=== PATIENT | female | born 1980 | race Caucasian/White ===

== ENCOUNTER → 2018-08-11 08:14 | Outpatient (CLI) | payer OTHER, MEDICAID, SELFPAY ==
[2018-08-11 09:42] LABS: Add Manual Diff / Slide Review NO; Basophils Absolute Auto 0 /uL (0-100); Eosinophils Absolute Auto 200 /uL (0-450); Eosinophils Percent Auto 4.9 % (2-4); Hematocrit 42.6 % (36-46); Hemoglobin 14.5 g/dL (12.0-16.0); Lymphocytes Absolute Auto 500 /uL (1100-4500); Lymphocytes Percent Auto 12.2 % (25-40); Mean Corpuscular Hemoglobin 33.1 PG (26-34); Mean Corpuscular Volume 97.3 fL (80-100); Monocytes Absolute Auto 600 /uL (0-900); Monocytes Percent Auto 15.2 % (3-14); Neutrophils Absolute Auto 2700 /uL (1500-7000); Neutrophils Percent Auto 66.7 % (50-75); Platelet Count 218 X10^3/uL (150-400); Red Blood Cell Count 4.37 X10^6/uL (4.0-5.2); Red Cell Distribution Width 13.5 % (11.6-14.8); White Blood Cell Count 4.1 X10^3/uL (4.5-11.0)
[2018-08-11 10:07] LABS: Alanine Aminotransferase 101 IU/L (9-52); Albumin 4.3 g/dL (3.5-5.0); Albumin Globulin Ratio 1.4 (1.0-2.8); Alkaline Phosphatase 61 U/L (38-126); Aspartate Aminotransferase 60 IU/L (14-36); BUN Creatinine Ratio 16.7 (6-22); Blood Urea Nitrogen 10 mg/dL (7-17); Calcium 9.3 mg/dL (8.4-10.2); Carbon Dioxide 28 mmol/L (22-32); Chloride 102 mmol/L (98-107); Cholesterol 201 mg/dL (140-199); Estimated Glomerular Filt Rate > 60.0 mL/min (>60); Globulin 3.1 g/dL (1.7-4.1); Glucose 97 mg/dL (70-100); HDL Cholesterol 59 mg/dL (40-60); HEMOLYSIS < 15 (0-50); LDL Cholesterol Calculated 128 mg/dL (<100); Potassium 4.4 mmol/L (3.4-5.1); Sodium 137 mmol/L (137-145); Total Protein 7.4 g/dL (6.3-8.2); Triglycerides 69 mg/dL (35-150)
== END ==
PROVIDERS: PCP Internal Medicine; Visit Provider Internal Medicine
DX: Z00.00 Encounter for general adult medical examination without abnormal findings (principal); Z13.1 Encounter for screening for diabetes mellitus; Z13.6 Encounter for screening for cardiovascular disorders
CPT/HCPCS: 36415; 80053; 80061; 85025

== ENCOUNTER → 2018-08-18 10:18 | Outpatient (CLI) | payer OTHER, MEDICAID, SELFPAY ==
[2018-08-18 12:02] LABS: HEMOLYSIS < 15 (0-50); Iron 66 ug/dL (37-170)
[2018-08-18 12:13] LABS: Percent Iron Saturation 17 % (15-50); Total Iron Binding Capacity 384 ug/dL (265-497); Transferrin 299 mg/dL (206-381)
[2018-08-18 12:48] LABS: Hepatitis B Surface Antigen NEGATIVE s/c (NEGATIVE)
[2018-08-18 12:53] LABS: Hep C Virus Ab w/Reflex Quant NEGATIVE s/c (NEGATIVE)
[2018-08-20 14:25] LABS: Ceruloplasmin 29 mg/dL (18-53)
[2018-08-20 19:41] LABS: ANA Screen, IFA Negative (Negative)
[2018-08-20 22:56] LABS: Albumin 4.5 g/dL (3.8-4.8); Alpha 1 Globulin 0.2 g/dL (0.2-0.3); Alpha 2 Globulin 0.5 g/dL (0.5-0.9); Beta 1 Globulin 0.4 g/dL (0.4-0.6); Gamma Globulin 1.1 g/dL (0.8-1.7)
== END ==
PROVIDERS: PCP Internal Medicine; Visit Provider Internal Medicine
DX: K75.9 Inflammatory liver disease, unspecified (principal)
CPT/HCPCS: 36415; 82390; 83540; 83550; 84155; 84165; 86038; 86255; 86803; 87340

== ENCOUNTER 2018-10-08 19:10 | Emergency (ER) | payer OTHER, MEDICAID, SELFPAY ==
[2018-10-08 19:19] VITALS: BP 149/89; PULSE 84; RESP 20; TEMP 36.9; O2SAT 98; BMI 27.3
[2018-10-08 20:11] LABS: Bacteria Urine None Seen
[2018-10-08 20:26] LABS: RBC Urine 0-1/HPF (0-5/HPF); Squamous Epithelial Cell Urine 0-1 /HPF (0-5/HPF); WBC Urine 0-1/HPF (0-5/HPF)
[2018-10-08 20:27] LABS: Amorphous Sediment Urine 1+; Calcium Oxalate Crystals Urine Many
[2018-10-08 20:28] LABS: Culture Indicated Urine Cult Not Indicated
--- NOTE | 2018-10-08 20:49 | ED.ABDPAIN ---
HPI - Abdominal Pain General Chief Complaint: Abdominal Pain Stated Complaint: Left abdominal pain Time Seen by Provider: 10/08/18 20:31 Source: patient Mode of arrival: ambulatory Limitations: no limitations History of Present Illness HPI narrative: 37-year-old female here for evaluation of left flank/lower back pain. Patient states that it has been off and on for the past several hours. Denies any urinary symptoms. No blood in urine. No bowel changes. States there are times when the symptoms become very intense and then other times when it is bearable or even times were she is symptom-free. States that is not worse with palpation however when it does hurt movement makes it worse. Related Data Previous Rx's Medication Instructions Recorded bupropion HCl SR 150 mg tablet,12 150 mg PO BID #60 each 08/18/18 hr sustained-release terbinafine HCl 250 mg tablet 250 mg PO 3XW #60 tab 08/18/18 Allergies Allergy/AdvReac Type Severity Reaction Status Date / Time No Known Drug Allergies Allergy Verified 08/18/18 09:49 Review of Systems Constitutional Denies fever(s) Cardiovascular Denies chest pain and Denies dyspnea Respiratory Denies dyspnea Gastrointestinal Gastrointestinal: Denies abdominal pain Comments: Left flank pain Genitourinary Reports flank pain Musculoskeletal Denies myalgias and Denies arthralgias Integumentary/Breasts Denies rash Neurologic Denies behavioral changes Psychiatric Denies behavioral changes Hematologic/Lymphatic Denies easy bleeding and Denies easy bruising PFSH Medical History Patient denies medical problems (Acute) Surgical History S/P section (Inactive) Family History (Updated 08/17/18 @ 19:25 by Milagros Li) Grandmother Ovarian cancer Lung cancer Grandmother Diabetes mellitus Hypertension Cancer Grandfather History of heart disease Grandfather History of heart disease Social History marital status: unmarried,living together household members: significant other Smoking Status: Current every day smoker quit status: considering quitting Social History marital status: unmarried,living together household members: significant other Smoking Status: Current every day smoker quit status: considering quitting Exam Initial Vital Signs Initial Vital Signs: Vital Signs Temperature 98.4 F 10/08/18 19:19 Pulse Rate 84 10/08/18 19:19 Respiratory Rate 20 10/08/18 19:19 Blood Pressure 149/89 H 10/08/18 19:19 Pulse Oximetry 98 10/08/18 19:19 Const General: cooperative, well developed, well groomed and No acute distress Orientation: alert, awake and oriented x3 HENMT Head: normal to inspection and normocephalic Resp Effort & Inspection: normal respiratory effort Auscultation: clear to auscultation bilaterally Cardio Rate: regular rate Rhythm: regular rhythm GI Inspection: non-distended Palpation: soft, No firm and No tender Back/Spine/Pelvis Back: No CVA tenderness Skin Lesions: no lesions Rashes: no rashes Neuro General: alert, awake and oriented x3 Cognition: normal cognition Speech: speech normal Gait: normal gait Motor: muscle tone normal throughout Sensory Exam: no sensory deficits noted Extrem General: normal to inspection and capillary refill normal Psych Appearance: grossly normal and well kempt Course Orders Ordered: ED Orders 10/08/18 19:50 Urine Microscopic Stat 10/08/18 21:08 CT kidney ureter bladder (KUB) Stat 10/08/18 21:20 Basic Metabolic Panel Stat Discontinued Medications Hydrocodone Bitart/Acetaminophen (Vicodin Prepack) 1 bottle MISC SEEINSTR ONE Stop: 10/08/18 23:13 Last Admin: 10/08/18 23:20 Dose: 1 bottle Ketorolac Tromethamine (Toradol) 30 mg IV NOW ONE Stop: 10/08/18 22:32 Last Admin: 10/08/18 23:03 Dose: 30 mg Morphine Sulfate (Morphine) 4 mg IV NOW ONE Stop: 10/08/18 21:08 Last Admin: 10/08/18 21:17 Dose: 4 mg Ondansetron HCl (Zofran) 4 mg IV NOW ONE Stop: 10/08/18 21:08 Last Admin: 10/08/18 21:18 Dose: 4 mg Vital Signs - 8 hr 10/08/18 21:21 10/08/18 22:00 Pulse Rate 74 65 Blood Pressure [Left Arm] 138/89 136/78 Pulse Oximetry 98 96 MDM - Abdominal Pain Lab Data Attestation: I reviewed the patient's lab results. Result diagrams: 10/08/18 21:20 Lab Results 10/08/18 10/08/18 Range/Units 19:50 21:20 Sodium 142 (137-145) mmol/L Potassium 3.4 (3.4-5.1) mmol/L Chloride 106 (98-107) mmol/L Carbon Dioxide 26 (22-32) mmol/L BUN 9 (7-17) mg/dL Creatinine 0.60 (0.52-1.04) mg/dL Estimated GFR > 60.0 (>60) mL/min BUN/Creatinine Ratio 15.0 (6-22) Glucose 98 (70-100) mg/dL Calcium 8.9 (8.4-10.2) mg/dL Urine RBC 0-1/hpf (0-5/HPF) Urine WBC 0-1/hpf (0-5/HPF) Ur Squamous Epith Cells 0-1 /hpf (0-5/HPF) Calcium Oxalate Crystal Many H Amorphous Sediment 1+ Urine Bacteria None seen (None) Ur Culture Indicated? Cult not indicated Point of care testing: Point of Care Testing Test Results Negative Urine Dip Bedside Urine Glucose Negative Bedside Urine Bilirubin + 1 Bedside Urine Ketone - Negative Urine Specific [place] 1.20 Bedside Urine Occult Blood - Negative Bedside Urine pH 7.0 Bedside Urine Protein - Negative Bedside Urine Urobilinogen 1+ 2mg Bedside Urine Nitrite - Negative Bedside Urine Leukocytes - Negative Esterase Imaging Data CT scan - abdomen: Radiologist's impression: [place] [address] CT Scan Report Signed Patient: Valentina Burnett R#: [id number] : 1980Acct:[id number] Age/Sex: 37 / FDate of Service: 10/08/18 Loc: ED Accession Number: [id number] Procedure: CT kidney ureter bladder (KUB) Ordering Provider: Leonid Miller D.O. PROCEDURE: CT KIDNEY URETER BLADDER (KUB) INDICATIONS: Potential left-sided stone TECHNIQUE: Noncontrast 5 mm thick sections acquired from the diaphragms to the symphysis. 5 mm thick coronal and sagittal reformats were then performed. For radiation dose reduction, the following was used: automated exposure control, adjustment of mA and/or kV according to patient size. COMPARISON: None. FINDINGS: Image quality: Excellent. Lung bases: There is mild dependent atelectasis. Heart size is normal. Urinary system: Both kidneys are normal in size. No kidney stones. No hydronephrosis or perinephric fat stranding. Both ureters appear non-dilated throughout their expected courses. Bladder wall thickness is normal; no calcified bladder stones. Other solid organs: There is diffuse hypoattenuation of the liver consistent with fatty infiltration with relative sparing along the gallbladder fossa. Gallbladder appears within normal limits without calcified gallstones. Pancreas is normal in contours. Spleen is normal in size. No adrenal nodules. Peritoneum and bowel: Unenhanced bowel loops demonstrate normal wall thickness and caliber. No evidence of appendicitis. There is colonic diverticulosis without acute diverticulitis. No free fluid or air. Nodes and vessels: No retroperitoneal or mesenteric adenopathy by size criteria. Aorta and inferior vena cava are normal in caliber. Abdominal wall: No ventral hernias. Pelvis: No free pelvic fluid. No inguinal hernias or adenopathy. Bones: No suspicious bony lesions. No vertebral body compression fractures. IMPRESSION: 1. No evidence of nephrolithiasis or obstructive uropathy. 2. Colonic diverticulosis without acute diverticulitis. 3. Hepatic steatosis. Dictated by: Jonatan Moreno M.D. on 10/08/2018 at 22:12 Approved by: Jonatan Moreno M.D. on 10/08/2018 at 22:15 MDM Narrative Medical decision making narrative: Patient has having no symptoms the time of my evaluation. The CT scan does not show signs of nephrolithiasis. She does have crystals in her urine but no signs of infection. Her exam is not consistent with pyelonephritis. She has no skin changes consistent with zoster. Her symptoms are on her left flank. She does not have abdominal tenderness. She did the return of symptoms when she was here in the ER however was not reproducible with palpation. She has no blood in her urine. There is no other acute pathology on the CT scan. Will hold on further workup for now. Will send home with symptom treatment. Patient expressed understanding the lack of definitive diagnosis. Instructed to contact her primary provider. Expressed understanding and agreement with plan. Discharge Plan Departure Patient Disposition: Home Clinical Impression: Left flank pain Discharge Date/Time: 10/08/18 23:13 Interventions: ED Discharge Assessment Last Done: 10/08/18 23:13 Instructions: DI for Flank Pain Activity Restrictions/Additional Instructions: Take the medication as directed. Contact your primary provider for a follow-up. Return to the emergency department for any new or worsening symptoms like we discussed. Prescriptions: No Action bupropion HCl 150 mg tablet sustained-release 12 hr 150 mg PO BID Qty: 60 RF: 3 terbinafine HCl 250 mg tablet 250 mg PO 3XW Qty: 60 RF: 3 Referrals: Nick Martini MD [Primary Care Provider] -
--- NOTE | 2018-10-08 21:08 | DI.CT.S_ITS ---
PROCEDURE: CT KIDNEY URETER BLADDER (KUB) INDICATIONS: Potential left-sided stone TECHNIQUE: Noncontrast 5 mm thick sections acquired from the diaphragms to the symphysis. 5 mm thick coronal and sagittal reformats were then performed. For radiation dose reduction, the following was used: automated exposure control, adjustment of mA and/or kV according to patient size. COMPARISON: None. FINDINGS: Image quality: Excellent. Lung bases: There is mild dependent atelectasis. Heart size is normal. Urinary system: Both kidneys are normal in size. No kidney stones. No hydronephrosis or perinephric fat stranding. Both ureters appear non-dilated throughout their expected courses. Bladder wall thickness is normal; no calcified bladder stones. Other solid organs: There is diffuse hypoattenuation of the liver consistent with fatty infiltration with relative sparing along the gallbladder fossa. Gallbladder appears within normal limits without calcified gallstones. Pancreas is normal in contours. Spleen is normal in size. No adrenal nodules. Peritoneum and bowel: Unenhanced bowel loops demonstrate normal wall thickness and caliber. No evidence of appendicitis. There is colonic diverticulosis without acute diverticulitis. No free fluid or air. Nodes and vessels: No retroperitoneal or mesenteric adenopathy by size criteria. Aorta and inferior vena cava are normal in caliber. Abdominal wall: No ventral hernias. Pelvis: No free pelvic fluid. No inguinal hernias or adenopathy. Bones: No suspicious bony lesions. No vertebral body compression fractures. IMPRESSION: 1. No evidence of nephrolithiasis or obstructive uropathy. 2. Colonic diverticulosis without acute diverticulitis. 3. Hepatic steatosis. Dictated by: Jonatan Moreno M.D. on 10/08/2018 at 22:12 Approved by: Jonatan Moreno M.D. on 10/08/2018 at 22:15
[2018-10-08] MEDS: MORPHINE 4 MG/ML INJ IV (21:17)
[2018-10-08] MEDS: ONDANSETRON 4 MG/2 ML INJ IV (21:18)
[2018-10-08 21:21] VITALS: BP 138/89; PULSE 74; O2SAT 98
[2018-10-08 21:51] LABS: Blood Urea Nitrogen 9 mg/dL (7-17); Calcium 8.9 mg/dL (8.4-10.2); Carbon Dioxide 26 mmol/L (22-32); Chloride 106 mmol/L (98-107); Estimated Glomerular Filt Rate > 60.0 mL/min (>60); Glucose 98 mg/dL (70-100); HEMOLYSIS 20 (0-50); Potassium 3.4 mmol/L (3.4-5.1); Sodium 142 mmol/L (137-145)
[2018-10-08 22:00] VITALS: BP 136/78; PULSE 65; O2SAT 96
[2018-10-08] MEDS: KETOROLAC 60 MG/2 ML VIAL 30 MG IV (23:03)
[2018-10-08] MEDS: HYDROCODONE/ACET 5/325 PREPACK 1 BOTTLE MISC (23:20)
== END 2018-10-08 23:13 | disposition home or self-care (01) ==
PROVIDERS: Emergency Provider Emergency Medicine; PCP Internal Medicine
DX: R10.9 Unspecified abdominal pain (principal)
CPT/HCPCS: 74176; 80048; 81003; 81015; 81025; 96374; 96375; 99282; 99284; J1885; J2270; J2405

== ENCOUNTER 2020-03-25 19:41 | Emergency (ER) | payer OTHER, MEDICAID, SELFPAY ==
[2020-03-25 19:52] VITALS: BP 164/104; PULSE 111; RESP 17; TEMP 36.6; O2SAT 98; BMI 27.3
--- NOTE | 2020-03-25 19:52 | DI.RAD.S_ITS ---
PROCEDURE: XR ANKLE LT MIN 3V INDICATIONS: twisted ankle yesterday swollen and painful TECHNIQUE: 3 views of the ankle were acquired. COMPARISON: None. FINDINGS: Bones: No fractures or dislocations. Ankle mortise is normally aligned. No suspicious bony lesions. Soft tissues: Soft tissue swelling overlying the lateral malleolus. No tibiotalar joint effusion. Achilles tendon appears normal. IMPRESSION: Moderate lateral malleolar soft tissue swelling without underlying fracture or dislocation. If there is persistent clinical concern for occult fracture given adequate mechanism of injury, consider repeat imaging in 10-14 days. Dictated by: Romaine Gallardo M.D. on 03/25/2020 at 20:08 Approved by: Romaine Gallardo M.D. on 03/25/2020 at 20:09
--- NOTE | 2020-03-25 20:17 | DI.RAD.S_ITS ---
PROCEDURE: XR FOOT LT MIN 3V INDICATIONS: pain in foot TECHNIQUE: 3 views of the foot were acquired. COMPARISON: [facility], CR, XR ANKLE LT MIN 3V, 03/25/2020, 19:55. FINDINGS: Bones: Age-indeterminate, but probably chronic curvilinear ossification adjacent to the lateral margin of the cuboid bone. No significant overlying soft tissue swelling. There is soft tissue swelling overlying the lateral malleolus. Otherwise, no acute fractures visualized. Alignment is anatomic. No suspicious bony lesions. Soft tissues: No tibiotalar joint effusion. Achilles tendon appears normal. IMPRESSION: Age-indeterminate, curvilinear ossification adjacent to the lateral margin of the cuboid without overlying soft tissue edema. This may represent an avulsion injury from remote trauma. However, if there is point tenderness in this region, this may represent a more acute finding. Dictated by: Romaine Gallardo M.D. on 03/25/2020 at 20:33 Approved by: Romaine Gallardo M.D. on 03/25/2020 at 20:36
--- NOTE | 2020-03-25 20:42 | ED_ITS ---
HPI - Extremity Injury (Lower) General Chief Complaint: Extremity Injury, Lower Stated Complaint: Lt ankle/foot injury Time Seen by Provider: 03/25/20 20:18 Source: patient Mode of arrival: Ambulatory Limitations: no limitations History of Present Illness HPI Narrative: Patient is a 39-year-old female who presents with left foot and ankle pain. She states that she was sitting on her left foot with her legs crossed yesterday while riding [employer] cards. She got up and felt like her foot was asleep she has and tripped over some shoes. She heard about for pops. She is ambulatory on it but it does hurt in his quite painful. She has a black and blue bruising and significant swelling on the foot and ankle area. Related Data Previous Rx's Medication Instructions Recorded bupropion HCl 150 mg tablet,12 hr See Rx Instructions .ROUTE 04/20/19 sustained-release .COMPLEX #180 tab buspirone 7.5 mg tablet 7.5 mg PO BID #60 tab 02/03/20 naltrexone microspheres 380 mg 380 mg IM QMONTH #1 each 03/08/20 intramuscular suspension,extended release Allergies Allergy/AdvReac Type Severity Reaction Status Date / Time No Known Drug Allergies Allergy Verified 10/02/19 09:11 Review of Systems Review of Systems Narrative: GENERAL: Denies chills,fever HEENT: Denies throat pain RESPIRATORY: Denies dyspnea, cough, wheezing CARDIOVASCULAR: Denies chest pain, palpitations GASTROINTESTINAL: Denies nausea, vomiting MUSCULOSKELETAL: See HPI SKIN: No rash, no laceration, no pruritus NEUROLOGIC: Denies weakness, dizziness, headache, numbness 8 point review of systems is negative except for those stated above and HPI Patient History Medical History Abnormal LFTs Alcoholism in remission Generalized anxiety disorder Surgical History S/P section Family History Grandmother Ovarian cancer Lung cancer Grandmother Diabetes mellitus Hypertension Cancer Grandfather History of heart disease Grandfather History of heart disease Social History marital status: unmarried,living together household members: significant other Smoking Status: Current every day smoker quit status: considering quitting Smoking Status: Current every day smoker Substance Use Type: marijuana Exam Initial Vital Signs Initial Vital Signs: Vital Signs Temperature 97.9 F 03/25/20 19:52 Pulse Rate 111 H 03/25/20 19:52 Respiratory Rate 17 03/25/20 19:52 Blood Pressure 164/104 H 03/25/20 19:52 Pulse Oximetry 98 03/25/20 19:52 GENERAL: Well-appearing, well-nourished and in no acute distress. CARDIOVASCULAR: peripheral pulses in tact, cap refill <2 sec RESPIRATORY: No respiratory distress, speaks in full sentences without difficulty EXTREMITIES: Normal range of motion, no clubbing or edema. Neurovascularly intact Left foot significant swelling more laterally contusion noted at the heel area. Distal pedal pulse is intact Achilles tendon intact. He is quite tender to touch. NEUROLOGICAL: Cranial nerves II through XII grossly intact. Normal gait and speech. SKIN: Warm, dry, no petechiae, no rashes or lesions. Course Orders Ordered: ED Orders 03/25/20 19:52 XR ankle LT min 3V Stat 03/25/20 20:17 XR foot LT min 3V Stat Vital Signs Vital signs: Vital Signs - 8 hr 03/25/20 19:52 03/25/20 21:08 Temperature 97.9 F Pulse Rate 111 H 98 H Respiratory Rate 17 16 Blood Pressure 164/104 H 134/90 Pulse Oximetry 98 99 MDM - Extremity Injury (Lower) Imaging Data Extremity x-ray #1: Radiologist's Impression: PROCEDURE: XR ANKLE LT MIN 3V INDICATIONS: twisted ankle yesterday swollen and painful TECHNIQUE: 3 views of the ankle were acquired. COMPARISON: None. FINDINGS: Bones: No fractures or dislocations. Ankle mortise is normally aligned. No suspicious bony lesions. Soft tissues: Soft tissue swelling overlying the lateral malleolus. No tibiotalar joint effusion. Achilles tendon appears normal. IMPRESSION: Moderate lateral malleolar soft tissue swelling without underlying fracture or dislocation. If there is persistent clinical concern for occult fracture given adequate mechanism of injury, consider repeat imaging in 10-14 days. Dictated by: Romaine Gallardo M.D. on 03/25/2020 at 20:08 Approved by: Romaine Gallardo M.D. on 03/25/2020 at 20:09 Extremity x-ray #2: Radiologist's Impression: PROCEDURE: XR FOOT LT MIN 3V INDICATIONS: pain in foot TECHNIQUE: 3 views of the foot were acquired. COMPARISON: [facility], CR, XR ANKLE LT MIN 3V, 03/25/2020, 19:55. FINDINGS: Bones: Age-indeterminate, but probably chronic curvilinear ossification adjacent to the lateral margin of the cuboid bone. No significant overlying soft tissue swellin g. There is soft tissue swelling overlying the lateral malleolus. Otherwise, no acute fractures visualized. Alignment is anatomic. No suspicious bony lesions. Soft tissues: No tibiotalar joint effusion. Achilles tendon appears normal. IMPRESSION: Age-indeterminate, curvilinear ossification adjacent to the lateral margin of the cuboid without overlying soft tissue edema. This may represent an avulsion injury from remote trauma. However, if there is point tenderness in this region, this may represent a more acute finding. Dictated by: Romaine Gallardo M.D. on 03/25/2020 at 20:33 Discharge Plan Departure Patient Disposition: Home Clinical Impression: Sprain of foot, left Qualifiers: Encounter type: initial encounter Qualified Code(s): S93.602A - Unspecified sprain of left foot, initial encounter Instructions: DI for Foot Sprain Activity Restrictions/Additional Instructions: *You have been diagnosed with left foot sprain *What to do: Use crutches as needed recommend elevating as often as possible ice 20-30 minutes at a time. Use an ankle brace as well especially while active during the day. If still having pain and discomfort in 2-4 weeks he may require an outpatient MRI please see your primary care provider about this *Continue to take medications as directed Aleve 500 mg every 12 hours *Follow up with your primary care provider in 2-3 days *Return to ER if you should have increasing pain swelling or any new, worsening or concerning symptoms Prescriptions: No Action bupropion HCl 150 mg tablet sustained-release 12 hr See Rx Instructions .ROUTE .COMPLEX Qty: 180 RF: 3 buspirone 7.5 mg tablet 7.5 mg PO BID Qty: 60 RF: 3 Vivitrol 380 mg suspension,extended rel recon 380 mg IM QMONTH Qty: 1 RF: 4 Referrals: Nick Martini MD [Primary Care Provider] -
[2020-03-25 21:08] VITALS: BP 134/90; PULSE 98; RESP 16; O2SAT 99
== END 2020-03-25 21:08 | disposition home or self-care (01) ==
PROVIDERS: Emergency Provider Emergency Medicine; PCP Internal Medicine
DX: S93.602A Unspecified sprain of left foot, initial encounter (principal); W19.XXXA Unspecified fall, initial encounter
CPT/HCPCS: 73610; 73630; 99283

== ENCOUNTER → 2020-05-31 15:42 | Outpatient (CLI) | payer OTHER, MEDICAID, SELFPAY ==
[2020-05-31 16:33] LABS: COVID19 -Nasal RAPID Negative (Negative)
== END ==
PROVIDERS: PCP Internal Medicine; Referring Provider Internal Medicine; Visit Provider Internal Medicine
DX: Z20.822 Contact with and (suspected) exposure to COVID-19 (principal)
CPT/HCPCS: 87635

== ENCOUNTER 2021-11-05 09:05 | Emergency (ER) | payer OTHER, MEDICAID, SELFPAY ==
[2021-11-05 09:05] VITALS: BP 122/77; PULSE 75; RESP 18; TEMP 36.6; O2SAT 100; BMI 25.7
--- NOTE | 2021-11-05 09:44 | ED.ALLEREA ---
HPI - Allergic Reaction General Chief complaint: Allergic Reaction Stated complaint: allergic reaction Time Seen by Provider: 11/05/21 09:15 Source: patient Mode of arrival: Ambulatory History of Present Illness HPI narrative: This patient comes to the emergency department with an allergic reaction. She says she has had multiple allergic reactions over the past few months for no known reason. She suspects her COVID immunization may be related. She says once it was related to shellfish exposure. She says today she has had no shellfish exposure or any other exposure she can name. She says typically her allergic reactions involve swelling of the mouth tongue and lips but today those are not the symptoms today her symptoms are rash eruption that is very itchy and swelling of the hands and feet with nausea and vomiting and lightheadedness as if she might faint. She vomited multiple times on her way to work and on her way to the hospital. Related Data Previous Rx's Medication Instructions Recorded bupropion HCl 150 mg tablet,12 hr See Rx Instructions .Route 02/10/21 sustained-release .COMPLEX #180 tabs buspirone 7.5 mg tablet 7.5 mg PO BID #60 tabs 02/10/21 naltrexone microspheres 380 mg 380 mg IM QMONTH #1 ea 02/10/21 intramuscular suspension,extended release (Vivitrol) epinephrine 0.3 mg/0.3 mL 0.3 mg (0.3 mL) IM Q4H PRN 11/05/21 injection, auto-injector (EpiPen anaphylaxis #1 ea 2-Alexander) Allergies Allergy/AdvReac Type Severity Reaction Status Date / Time No Known Drug Allergies Allergy Verified 02/10/21 13:28 Review of Systems Review of Systems Narrative: Complete review of systems is negative other than as noted above. Specifically she denies shortness of breath or swelling in her tongue or mouth. Patient History Medical History Abnormal LFTs Alcoholism in remission Generalized anxiety disorder Surgical History S/P section Family History Grandmother Ovarian cancer Lung cancer Grandmother Diabetes mellitus Hypertension Cancer Grandfather History of heart disease Grandfather History of heart disease Social History marital status: unmarried,living together household members: significant other Smoking Status: Current some day smoker quit status: considering quitting Smoking Status: Current some day smoker Substance Use Type: marijuana Exam Narrative Exam Narrative: GENERAL: Alert, cooperative and in no distress. HEAD: Atraumatic. Normocephalic. EYES: Sclera are clear without icterus. Extraocular movements are full. ENT: No rhinorrhea. Oropharynx is moist. Mouth exam is benign. NECK: Supple. Full range of motion. CARDIOVASCULAR: Normal rate and rhythm without murmur gallop or rub. RESPIRATORY: Clear to auscultation. Breath sounds equal bilaterally. No wheezes, rales, or rhonchi. GASTROINTESTINAL: Abdomen soft, non-tender, nondistended. EXTREMITIES: No edema, full range of motion. No obvious trauma. BACK: Normal inspection, no CVA tenderness. NEURO: Nonfocal examination, normal speech, normal gait. SKIN: Urticarial rash on the flanks and extremities. The hands and feet are slightly edematous. PSYCH: Normally oriented. Normal range of affect. Appropriate behavior Initial Vital Signs Initial Vital Signs: Vital Signs Temperature 98 F 11/05/21 09:05 Pulse Rate 75 11/05/21 09:05 Respiratory Rate 18 11/05/21 09:05 Blood Pressure 122/77 11/05/21 09:05 Pulse Oximetry 100 11/05/21 09:05 Oxygen Delivery Method 11/05/21 09:05 Course Course Course Narrative: She is hemodynamically normal when I see her. She is not actively vomiting. She has a skin reaction but I do not perceive any abdominal pain on exam nor does she have any or pharyngeal symptoms. I think watchful waiting with modest interventions including H1 and H2 blockers as appropriate. Orders Ordered: Famotidine (Famotidine 20 Mg/2 Ml Vial) 20 mg IV NOW ELSA Last Admin: 11/05/21 10:25 Dose: 20 mg Documented By: SANDEEP Discontinued Medications Diphenhydramine HCl (Diphenhydramine 50 Mg/Ml Vial) 25 mg IV NOW ONE Stop: 11/05/21 09:44 Last Admin: 11/05/21 10:23 Dose: 25 mg Documented By: SANDEEP Vital Signs Vital signs: Vital Signs - 8 hr 11/05/21 09:05 Temperature 98 F Pulse Rate 75 Respiratory Rate 18 Blood Pressure 122/77 Pulse Oximetry 100 Oxygen Delivery Method Room Air MDM - Allergic Reaction MDM Narrative Medical decision making narrative: Patient feels dramatically improved. She just now received her Benadryl and famotidine so I do not think that our administration of this medicine had much to do with it. She did take 50 mg of oral Benadryl prior to arrival. No symptoms of severe allergy at this time. Discharge Plan Departure Patient Disposition: Home Clinical Impression: Allergic reaction Activity Restrictions/Additional Instructions: It is not clear what is causing this allergic reaction that you had today or what it has been bothering you recently so I recommend you follow-up with your doctor to discuss further investigation including possible allergy referral. For now recommend Benadryl as needed. Go ahead and use the EpiPen if you have severe symptoms and cannot get to medical care quickly. This medicine will make you feel terrible for short period of time so do not use it unless you have severe allergy symptoms. Prescriptions: New epinephrine [EpiPen 2-Alexander] 0.3 mg/0.3 mL auto-injector 0.3 mg IM Q4H PRN (Reason: anaphylaxis) Qty: 1 0RF No Action Vivitrol 380 mg suspension,extended rel recon 380 mg IM QMONTH Qty: 1 4RF buspirone 7.5 mg tablet 7.5 mg PO BID Qty: 60 3RF bupropion HCl 150 mg tablet sustained-release 12 hr See Rx Instructions .ROUTE .COMPLEX Qty: 180 3RF Dose Instruction: TAKE 1 TABLET BY MOUTH ONCE DAILY FOR THE FIRST WEEK, THEN INCREASE TO2 TABLETS DAILY THEREAFTER Rx Instructions: 2 TABLETS BY MOUTH DAILY Referrals: Nick Martini MD [Primary Care Provider] -
[2021-11-05] MEDS: diphenhydrAMINE 50 MG/ML VIAL 25 MG IV (10:23)
[2021-11-05] MEDS: FAMOTIDINE 20 MG/2 ML VIAL IV (10:25)
[2021-11-05 10:30] VITALS: BP 130/70; PULSE 75; RESP 18; O2SAT 98
== END 2021-11-05 10:48 | disposition home or self-care (01) ==
PROVIDERS: Emergency Provider Family Medicine Addiction Medicine; PCP Internal Medicine
DX: R21 Rash and other nonspecific skin eruption (principal); R11.2 Nausea with vomiting, unspecified; R42 Dizziness and giddiness; T78.40XA Allergy, unspecified, initial encounter
CPT/HCPCS: 96374; 96375; 99283; 99284; J1200

== ENCOUNTER 2023-03-10 00:46 | Emergency (ER) | payer OTHER, MEDICAID, SELFPAY ==
[2023-03-10 00:52] VITALS: BP 147/87; PULSE 81; RESP 18; TEMP 36.8; O2SAT 97; BMI 36.9
--- NOTE | 2023-03-10 00:56 | PC.NURSE ---
pain in lower jaw after teeth extraction
--- NOTE | 2023-03-10 00:57 | ED.DENTAL ---
HPI - Dental/Oral General Chief complaint: Dental/Oral Stated complaint: dry socket Time Seen by Provider: 03/10/23 00:52 Source: patient Mode of arrival: Ambulatory History of Present Illness HPI Narrative: 42yoF presents with possible dry socket. Patient had extraction of all of her implants 3 days ago. She states she was sent home on pain medications, but she does not like how they make her feel. She has been taking Tylenol and Motrin but there is a pain in her left mandible that is progressively getting worse and she is concerned that she may have dry socket. It is Saturday and she is unable to see her dentist until Saturday. Patient had dental implants for 22 years and they ?failed?, which was the reason for extensive extraction Related Data Previous Rx's Medication Instructions Recorded bupropion HCl 150 mg tablet,12 hr See Rx Instructions .Route 02/10/21 sustained-release .COMPLEX #180 tabs buspirone 7.5 mg tablet 7.5 mg PO BID #60 tabs 02/10/21 naltrexone microspheres 380 mg 380 mg IM QMONTH #1 ea 02/10/21 intramuscular suspension,extended release (Vivitrol) epinephrine 0.3 mg/0.3 mL 0.3 mg (0.3 mL) IM Q4H PRN 11/05/21 injection, auto-injector (EpiPen anaphylaxis #1 ea 2-Alexander) clindamycin HCl 300 mg capsule 300 mg PO QID #21 caps 03/10/23 Allergies Allergy/AdvReac Type Severity Reaction Status Date / Time No Known Drug Allergies Allergy Verified 02/10/21 13:28 Review of Systems Review of Systems Narrative: Negative except as noted above Patient History Medical History Abnormal LFTs Alcoholism in remission Generalized anxiety disorder Surgical History S/P section Family History Grandmother Ovarian cancer Lung cancer Grandmother Diabetes mellitus Hypertension Cancer Grandfather History of heart disease Grandfather History of heart disease Social History marital status: unmarried,living together household members: significant other Smoking Status: Current some day smoker quit status: considering quitting Smoking Status: Current some day smoker Substance Use Type: marijuana Exam Initial Vital Signs Initial Vital Signs: Vital Signs Temperature 98.2 F 03/10/23 00:52 Pulse Rate 81 03/10/23 00:52 Respiratory Rate 18 12 00:52 Blood Pressure 147/87 H 12 00:52 Pulse Oximetry 97 03/10/23 00:52 Oxygen Delivery Method Room Air 03/10/23 00:52 Const: Awake, alert, no acute distress, nontoxic appearing ENT: edentulous, dry socket at canine/cuspid level. All other sutures healing well Skin: Warm, Dry, intact, no rashes Neuro: AO x3, CN II-XII grossly intact, moves all extremities Course Course Course Narrative: Dry socket of the left mandible. The rest of the patient's jaw does appear to be healing well. A dental block using 1mL of 0.5% bupivacaine with epinephrine was injected into the left inferior alveolar nerve. Patient reported improvement in pain post-procedure. Will start on clindamycin, first dose given in ED. DC with clindamycin rx and instructions to f/u with dentist first thing saturday morning Orders Ordered: Discontinued Medications Bupivacaine HCl/Epinephrine Bitart (Bupivacaine 0.5% W/ Epi (Pf) 30 Ml Vial) 5 ml SUBCUT NOW ONE Stop: 03/10/23 00:57 Last Admin: 03/10/23 01:00 Dose: 5 ml Clindamycin HCl (Clindamycin 150 Mg Capsule) 300 mg PO NOW ONE Stop: 03/10/23 00:57 Last Admin: 03/10/23 01:01 Dose: 300 mg Vital Signs Vital signs: Vital Signs - 8 hr 03/10/23 00:52 Temperature 98.2 F Pulse Rate 81 Respiratory Rate 18 Blood Pressure 147/87 H Pulse Oximetry 97 Oxygen Delivery Method Room Air Discharge Plan Departure Patient Disposition: Home Clinical Impression: Dry tooth socket Instructions: DI for Dental Pain Prescriptions: New clindamycin HCl 300 mg capsule 300 mg PO QID Qty: 21 0RF No Action Vivitrol 380 mg suspension,extended rel recon 380 mg IM QMONTH Qty: 1 4RF buspirone 7.5 mg tablet 7.5 mg PO BID Qty: 60 3RF bupropion HCl 150 mg tablet sustained-release 12 hr See Rx Instructions .ROUTE .COMPLEX Qty: 180 3RF Dose Instruction: TAKE 1 TABLET BY MOUTH ONCE DAILY FOR THE FIRST WEEK, THEN INCREASE TO2 TABLETS DAILY THEREAFTER Rx Instructions: 2 TABLETS BY MOUTH DAILY epinephrine [EpiPen 2-Alexander] 0.3 mg/0.3 mL auto-injector 0.3 mg IM Q4H PRN (Reason: anaphylaxis) Qty: 1 0RF Referrals: Nick Martini MD [Primary Care Provider] - Stand Alone Forms: Patient Portal/API
[2023-03-10] MEDS: BUPIVACAINE 0.5% W/ EPI (PF) 30 ML VIAL 5 ML SUBCUT (01:00)
[2023-03-10] MEDS: CLINDAMYCIN 150 MG CAPSULE 300 MG PO (01:01)
== END 2023-03-10 01:28 | disposition home or self-care (01) ==
PROVIDERS: Emergency Provider Emergency Medicine; PCP Internal Medicine
DX: M27.3 Alveolitis of jaws (principal)
CPT/HCPCS: 64450; 99283

== ENCOUNTER 2024-05-10 10:53 | Emergency (ER) | payer OTHER, SELFPAY ==
--- NOTE | 2024-05-10 | DI.RAD.S_ITS ---
PROCEDURE: XR TIBIA FUBULA RT 2V INDICATIONS: RIGHT CALF AND ANKLE PAIN TECHNIQUE: 2 views of the tibia and fibula were acquired. COMPARISON: None. FINDINGS: Bones: Distal oblique fibular fracture and posterior malleolar fracture are partially visualized. Soft tissues: No suspicious soft tissue calcifications or masses. IMPRESSION: Distal fibular and posterior malleolar fractures Dictated by: Hector Mcguire M.D. on 05/10/2024 at 11:02 Approved by: Hector Mcguire M.D. on 05/10/2024 at 11:03
[2024-05-10 11:01] VITALS: BP 148/86; PULSE 106; RESP 16; TEMP 37; O2SAT 98; BMI 31.7
--- NOTE | 2024-05-10 11:06 | DI.RAD.S_ITS ---
PROCEDURE: XR ANKLE RT MIN 3V INDICATIONS: pain/swelling/injury TECHNIQUE: 3 views of the ankle were acquired. COMPARISON: [facility], CR, XR ANKLE LT MIN 3V, 03/25/2020, 19:55. FINDINGS: Bones: No displaced fracture of the medial malleolus. Moderately displaced oblique fracture through the distal fibula with slight dorsal displacement. Nondisplaced dorsal malleolar fracture. Soft tissues: Soft tissue edema surrounding the ankle. Achilles tendon appears normal. IMPRESSION: Trimalleolar fracture of the ankle Dictated by: Hector Mcguire M.D. on 05/10/2024 at 11:00 Approved by: Hector Mcguire M.D. on 05/10/2024 at 11:02
--- NOTE | 2024-05-10 11:12 | DI.RAD.S_ITS ---
PROCEDURE: XR FOOT RT MIN 3V INDICATIONS: right foot and ankle pain after rolling injury TECHNIQUE: 3 views of the foot were acquired. COMPARISON: [facility], CR, XR ANKLE RT MIN 3V, 05/10/2024, 11:08. [facility], CR, XR FOOT LT MIN 3V, 03/25/2020, 20:20. FINDINGS: Bones: Fracture of the medial malleolus. Oblique fracture of the distal fibula. Fracture through the posterior malleolus.. No suspicious bony lesions. Soft tissues: No tibiotalar joint effusion. Achilles tendon appears normal. IMPRESSION: Trimalleolar ankle fracture Dictated by: Hector Mcguire M.D. on 05/10/2024 at 10:58 Approved by: Hector Mcguire M.D. on 05/10/2024 at 11:00
--- NOTE | 2024-05-10 13:59 | ED.LOWEXIN ---
HPI - Extremity Injury (Lower) <Nara Ward PA-C - Last Filed: 05/10/24 19:04> General Chief Complaint: Extremity Injury, Lower Stated Complaint: RT foot injury/poss fx or sprain Time Seen by Provider: 05/10/24 12:48 Source: patient Mode of arrival: Wheelchair History of Present Illness HPI Narrative: Ms. Burnett is a pleasant 43-year-old female with no reported past medical history who presents to the emergency department for right ankle pain after rolling the ankle last night. Patient states while folding laundry she accidentally stepped in an awkward way rolling the right ankle. When she woke up this morning and tried to step out of bed she had severe pain of the right ankle which prompted her emergency department arrival. No medications prior to arrival. She was concerned for possible ankle sprain. She denies fall or head trauma. No blood thinner use. No medication allergies. She works as a home health caregiver. She does not currently have a primary care doctor. Related Data Previous Rx's Medication Instructions Recorded bupropion HCl 150 mg tablet,12 hr See Rx Instructions .Route 02/10/21 sustained-release .COMPLEX #180 tabs buspirone 7.5 mg tablet 7.5 mg PO BID #60 tabs 02/10/21 naltrexone microspheres 380 mg 380 mg IM QMONTH #1 ea 02/10/21 intramuscular suspension,extended release (Vivitrol) epinephrine 0.3 mg/0.3 mL 0.3 mg (0.3 mL) IM Q4H PRN 11/05/21 injection, auto-injector (EpiPen anaphylaxis #1 ea 2-Alexander) clindamycin HCl 300 mg capsule 300 mg PO QID #21 caps 03/10/23 hydrocodone 5 mg-acetaminophen 325 1 tab PO Q4-6H PRN pain #12 tabs 05/10/24 mg tablet Allergies Allergy/AdvReac Type Severity Reaction Status Date / Time No Known Drug Allergies Allergy Verified 02/10/21 13:28 Review of Systems <Nara Ward PA-C - Last Filed: 05/10/24 19:04> Review of Systems ROS Unobtainable: All systems reviewed & are unremarkable except as noted in HPI and below Patient History <Nara Ward PA-C - Last Filed: 05/10/24 19:04> Medical History Alcoholism in remission Abnormal LFTs Generalized anxiety disorder Surgical History S/P section Family History Grandmother Ovarian cancer Lung cancer Grandmother Diabetes mellitus Hypertension Cancer Grandfather History of heart disease Grandfather History of heart disease Social History marital status: unmarried,living together household members: significant other Smoking Status: Current every day smoker quit status: considering quitting Smoking Status: Current every day smoker tobacco type: cigarettes Exam <Nara Ward PA-C - Last Filed: 05/10/24 19:04> Narrative Exam Narrative: GENERAL: 43 year old patient appears stated age. Well-developed patient, in no acute distress. HEAD: Atraumatic. Normocephalic. NECK: Trachea midline. Cervical ROM intact. CARDIOVASCULAR: Regular rate. DP and PT pulses palpable bilaterally. Brisk capillary refill on the toes. RESPIRATORY: ?Nonlabored respirations. ?Speaking in clear, full sentences. ? EXTREMITIES: Diffuse edema of right ankle with ecchymosis below the medial malleolus. Tenderness to palpation of medial and lateral malleolus. No focal tenderness of the right foot. Compartments of the right lower extremity are soft. NEURO: AOx3. ?Clear speech. ?Sensation intact to light touch on the dorsal and plantar aspect of the right foot. SKIN: No rash or erythema of visible areas, ecchymosis medial right ankle. Initial Vital Signs Initial Vital Signs: Vital Signs Temperature 98.6 F 05/10/24 11:01 Pulse Rate 106 H 05/10/24 11:01 Respiratory Rate 16 05/10/24 11:01 Blood Pressure 148/86 H 05/10/24 11:01 Pulse Oximetry 98 05/10/24 11:01 Oxygen Delivery Method Room Air 05/10/24 11:01 <Umberto Miller MD - Last Filed: 05/10/24 21:24> Initial Vital Signs Initial Vital Signs: Vital Signs Temperature 98.6 F 05/10/24 11:01 Pulse Rate 106 H 05/10/24 11:01 Respiratory Rate 16 05/10/24 11:01 Blood Pressure 148/86 H 05/10/24 11:01 Pulse Oximetry 98 05/10/24 11:01 Oxygen Delivery Method Room Air 05/10/24 11:01 Course <Nara Ward PA-C - Last Filed: 05/10/24 19:04> Orders Ordered: Discontinued Medications Hydrocodone Bitart/Acetaminophen (Hydrocodone/Acet 5/325 Tablet) 1 tab PO NOW ONE Stop: 05/10/24 14:09 Last Admin: 05/10/24 14:20 Dose: 1 tab Documented By: EUFEMIA Ibuprofen (Ibuprofen 400 Mg Tablet) 400 mg PO NOW ONE Stop: 05/10/24 14:09 Last Admin: 05/10/24 14:20 Dose: 400 mg Documented By: EUFEMIA Consultations Consultation #1: Discussed case with on-call orthopedic surgeon Dr. Small. She recommends patient have outpatient right ankle surgery this week. We will place patient into a right leg posterior short-leg splint with stirrup. No CT necessary. Advised patient call the office Saturday morning (tomorrow) for further scheduling. Time: 14:10 Vital Signs Vital signs: Vital Signs - 8 hr 05/10/24 16:02 Pulse Rate 86 Respiratory Rate 18 Blood Pressure 134/74 Pulse Oximetry 97 Oxygen Delivery Method Room Air <Umberto Miller MD - Last Filed: 05/10/24 21:24> Orders Ordered: Discontinued Medications Hydrocodone Bitart/Acetaminophen (Hydrocodone/Acet 5/325 Tablet) 1 tab PO NOW ONE Stop: 05/10/24 14:09 Last Admin: 05/10/24 14:20 Dose: 1 tab Documented By: EUFEMIA Ibuprofen (Ibuprofen 400 Mg Tablet) 400 mg PO NOW ONE Stop: 05/10/24 14:09 Last Admin: 05/10/24 14:20 Dose: 400 mg Documented By: EUFEMIA Vital Signs Vital signs: Vital Signs - 8 hr 05/10/24 16:02 Pulse Rate 86 Respiratory Rate 18 Blood Pressure 134/74 Pulse Oximetry 97 Oxygen Delivery Method Room Air MDM - Extremity Injury (Lower) <Nara Ward PA-C - Last Filed: 05/10/24 19:04> Medical Records Attestation: I reviewed the patient's medical records. Imaging Data Right Ankle and Foot X-Ray: Radiologist's Impression: PROCEDURE: XR ANKLE RT MIN 3V INDICATIONS: pain/swelling/injury TECHNIQUE: 3 views of the ankle were acquired. COMPARISON: [facility], CR, XR ANKLE LT MIN 3V, 03/25/2020, 19:55. FINDINGS: Bones: No displaced fracture of the medial malleolus. Moderately displaced oblique fracture through the distal fibula with slight dorsal displacement. Nondisplaced dorsal malleolar fracture. Soft tissues: Soft tissue edema surrounding the ankle. Achilles tendon appears normal. IMPRESSION: Trimalleolar fracture of the ankle' PROCEDURE: XR FOOT RT MIN 3V INDICATIONS: right foot and ankle pain after rolling injury TECHNIQUE: 3 views of the foot were acquired. COMPARISON: [facility], CR, XR ANKLE RT MIN 3V, 05/10/2024, 11:08. [facility], CR, XR FOOT LT MIN 3V, 03/25/2020, 20:20. FINDINGS: Bones: Fracture of the medial malleolus. Oblique fracture of the distal fibula. Fracture through the posterior malleolus.. No suspicious bony lesions. Soft tissues: No tibiotalar joint effusion. Achilles tendon appears normal. IMPRESSION: Trimalleolar ankle fracture Right Tib Fib Xray: My Impression: No fracture of right proximal fibula. MDM Narrative Medical decision making narrative: 43-year-old female with no reported past medical history who presents to the emergency department for right ankle pain after rolling the ankle last night. Differential diagnosis includes but is not limited to right ankle fracture, right ankle sprain, right ankle strain, etc. On exam patient is in no acute distress, nontoxic appearing. She does have diffuse edema of the right ankle with ecchymosis on the medial aspect. Tenderness around the whole ankle. X-ray right ankle and foot obtained in triage reveals a trimalleolar ankle fracture. Right tib/fib x-ray reviewed by myself reveals no proximal fibular fracture. Discussed the case with on-call orthopedic surgeon who recommends no CT, posterior short-leg splint with stirrup, call the office Saturday with patient to likely have surgery this week. Right posterior short-leg splint with stirrup applied by nursing staff, post splint assessment performed by me, patient is neurovascularly intact. Discussed plan extensively with the patient and her , she was provided with follow up information with Orthopedics. She was provided with crutches, prescription for short course of hydrocodone-acetaminophen, risk of narcotic pain medications discussed. Recommended rice therapy, discussed ED return precautions and the importance of follow up with ortho for further evaluation. She verbalized understanding of all information is agreeable to the plan. She is stable for discharge home with her . Discharge Plan Departure Patient Disposition: Home Clinical Impression: Closed right trimalleolar fracture Qualifiers: Encounter type: initial encounter Qualified Code(s): S82.851A - Displaced trimalleolar fracture of right lower leg, initial encounter for closed fracture Instructions: DI for Ankle Fracture Activity Restrictions/Additional Instructions: Dear Ms. Burnett, Today you were evaluated for right ankle pain and found to have a trimalleolar fracture of your right ankle which is 3 separate breaks. You will need to follow up with orthopedics and have surgery for this fracture. Please call to schedule an appointment with Dr. Sanna Small at [facility] tomorrow at [phone]. Please use RICE therapy for your pain in addition to ibuprofen/acetaminophen. Rest the painful area. Ice the area of pain/swelling for at least 15 minutes, 4x a day. Compress the area of swelling using a brace, wrap, or splint if applied. Elevate the painful or swollen extremity by supporting it above the level of the heart with pillows when sitting or laying. Please take Ibuprofen (Motrin/Advil) or Acetaminophen (Tylenol) for pain. These are available over the counter. You may take Ibuprofen 600 mg every 8 hours with food for pain. You may also take Acetaminophen 650 mg every 4-6 hours for pain. Do not exceed 3000 mg of Tylenol a day as this can cause liver damage. Do not drink alcohol with either of these medications. You have been prescribed a short course of narcotic medications. These are potentially dangerous and addictive medications that should be used carefully. While on these medications you cannot drive or operate heavy machinery. Additionally, you cannot sign legal documents or perform any duties such as this. Many people get constipated on narcotic medications so it would be advisable to discuss stool softeners with the pharmacist when you pickle cutter your prescription. Please understand that we cannot provide further refills of narcotics or controlled substances through the ED and your pain management will need to be through your Primary Care Provider Please follow up with your primary care doctor within the next 2-3 days for ER follow-up. (If you do not have a PCP you can call [phone]. ?to schedule an appointment with an [facility] Primary Care Provider) IF YOU DEVELOP ANY NEW OR WORSENING SYMPTOMS, RETURN TO THE ER! Please read the attached instructions, they highlight more specific treatments and interventions for you at home. Thank you for letting me participate in your care, Nara Ward PA-C Prescriptions: New hydrocodone-acetaminophen 5-325 mg tablet 1 tab PO Q4-6H PRN (Reason: pain) Qty: 12 0RF No Action Vivitrol 380 mg suspension,extended rel recon 380 mg IM QMONTH Qty: 1 4RF buspirone 7.5 mg tablet 7.5 mg PO BID Qty: 60 3RF bupropion HCl 150 mg tablet sustained-release 12 hr See Rx Instructions .ROUTE .COMPLEX Qty: 180 3RF Dose Instruction: TAKE 1 TABLET BY MOUTH ONCE DAILY FOR THE FIRST WEEK, THEN INCREASE TO2 TABLETS DAILY THEREAFTER Rx Instructions: 2 TABLETS BY MOUTH DAILY clindamycin HCl 300 mg capsule 300 mg PO QID Qty: 21 0RF epinephrine [EpiPen 2-Alexander] 0.3 mg/0.3 mL auto-injector 0.3 mg IM Q4H PRN (Reason: anaphylaxis) Qty: 1 0RF Referrals: Nick Martini MD [Primary Care Provider] - Sanna Small MD [Physician] - (Right trimal fx) Stand Alone Forms: Patient Portal/API/Survey ED Sign-out <Umberto Miller MD - Last Filed: 05/10/24 21:24> [facility] I was immediately available in the department for consultation. This documentation has been reviewed and I agree with assessment and plan. Supervised by Umberto Miller MD
[2024-05-10] MEDS: IBUPROFEN 400 MG TABLET PO (14:20)
[2024-05-10] MEDS: HYDROCODONE/ACET 5/325 TABLET 1 TAB PO (14:20)
--- NOTE | 2024-05-10 15:32 | PC.NURSE ---
splint approved by darius peacock
--- NOTE | 2024-05-10 15:32 | PC.NURSE ---
Pt reports last night she was walking when she rolled her ankle. Pt reports her pain did not improve and her foot continued to swell. Pt able to move toes; unable to bear weight.
[2024-05-10 16:02] VITALS: BP 134/74; PULSE 86; RESP 18; O2SAT 97
== END 2024-05-10 16:03 | disposition home or self-care (01) ==
PROVIDERS: Emergency Provider Physician Assistant; PCP Internal Medicine
DX: S82.851A Displaced trimalleolar fracture of right lower leg, initial encounter for closed fracture (principal); X50.1XXA Overexertion from prolonged static or awkward postures, initial encounter
CPT/HCPCS: 29515; 73590; 73610; 73630; 99283